=== PATIENT | female | born 1975 | race Caucasian/White ===

== ENCOUNTER 2018-05-04 17:31 | Emergency (ER) | payer OTHER ==
--- NOTE | 2018-05-04 18:07 | ED ---
Shortness of Breath - HPI Summary HPI Summary: This pt is a 43 y/o female presenting to [facility] sent by her PCP c/o SOB on exertion and right leg swelling over last month s/p right leg injury in Feb 2018. Pt reports she injured her right leg in February of 2018. Since then she notes she has had increasing swelling and pain on her right leg including her knee. Additionally notes right leg tingling and numbness when ambulating, pain across her chest and back, and elevated blood pressure. She has noticed that she feels more fatigued. Pt also has a headache today. Denies fever, chills, sore throat, ear ache, abd pain, back pain, dysuria, hematuria, bloody stools. Denies chance of . Pt takes methylphenidate for ADHD. She takes multivitamins for low ferritin. Pt notes she bruises easily. 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 Denies tobacco and alcohol use. - History of Current Complaint Chief Complaint: EDShortnessOfBreath Hx Obtained From: Patient Onset/Duration: Lasting Days, Still Present Timing: Constant Current Severity: Mild Dyspnea At: Exertion Aggrevating Factors: Nothing Alleviating Factors: Nothing Associated Signs & Symptoms: Chest Pain Unrelated to Cough, Calf Pain/Swelling, Edema - Allergy/Home Medications Allergies/Adverse Reactions: Allergies Allergy/AdvReac Type Severity Reaction Status Date / Time No Known Allergies Allergy Verified 05/04/18 17:41 Home Medications: Home Medications Methylphenidate ER TAB* [Concerta ER TAB*] 36 mg PO DAILY 05/04/18 [History Confirmed 05/04/18] Methylphenidate TAB* [Ritalin TAB*] 5 mg PO DAILY PRN 05/04/18 [History Confirmed 05/04/18] Multivit with Calcium,Iron,Min [Multiple Vitamins For Women] 1 tab PO DAILY [History Confirmed 05/04/18] PMH/Surg Hx/FS Hx/Imm Hx Endocrine/Hematology History: Reports: Hx Thyroid Disease - RIGHT THYROID NODULE CURRENTLY, Hx Anemia - LOW IRON COUNT Denies: Hx Anticoagulant Therapy, Hx Diabetes Cardiovascular History: Denies: Hx Hypertension, Hx Pacemaker/ICD Respiratory History: Reports: Hx Asthma Denies: Hx Chronic Obstructive Pulmonary Disease (COPD) GI History: Denies: Hx Jaundice, Hx Ulcer History: Denies: Hx Renal Disease Sensory History: Reports: Hx Contacts or Glasses - READING Denies: Hx Hearing Aid Opthamlomology History: Reports: Hx Contacts or Glasses - READING Neurological History: Reports: Hx Seizures - ?POSSIBLE EPILEPSY A YOUNG CHILD - NOTHING SINCE AGE 4 Denies: Hx Dementia Psychiatric History: Denies: Hx Panic Disorder, Hx Substance Abuse - Cancer History Cancer Type, Location and Year: EARLY STAGE CA OF THYROID - Surgical History Surgery Procedure, Year, and Place: 1996 18 YEARS [id number]. 2013 STAPEDECTOMY, [facility] TO . 2016 PARTIAL THYROIDECTOMY Hx Anesthesia Reactions: Yes - INFECTION FROM ENDOTRACHEAL TUBE AFTER STAPEDECTOMY(IRRITATION) Infectious Disease History: No Infectious Disease History: Denies: Hx Clostridium Difficile, Hx Hepatitis, Hx Human Immunodeficiency Virus (HIV), Hx of Known/Suspected MRSA, Hx Shingles, Hx Tuberculosis, Traveled Outside the [place] in Last 30 Days - Family History Known Family History: Positive: Diabetes Family History: Cancer. Migraine - Social History Alcohol Use: None Substance Use Type: Reports: None Smoking Status (MU): Never Smoked Tobacco Review of Systems Positive: Fatigue. Negative: Fever, Chills Negative: Sore Throat, Ear Ache Cardiovascular: Other - POS: elevated blood pressure Positive: Chest Pain Positive: Shortness Of Breath Negative: Abdominal Pain, Other - NEG: bloody stools Negative: dysuria, hematuria Musculoskeletal: Other - POS: back pain Positive: Edema - in right leg Positive: Headache, Paresthesia, Numbness All Other Systems Reviewed And Are Negative: No Physical Exam - Summary Physical Exam Summary: Appearance: Alert, conversive, nontoxic appearing Skin: Warm, dry, no mottling, no rashes, no contusions HEENT: EOMI, PERRL, moist mucous membranes Neck: No masses on the neck, supple Respiratory: Clear to auscultation, breath sounds present, no rales, no rhonchi , no wheezes Cardiovascular: RRR, pulses are symmetrical in both lower and upper extremities Abdomen: Soft, non-tender Bowel Sounds: Present Musculoskeletal: No CVA tenderness, no obvious deformity, moving all extremities in a grossly normal manner Neurological: A&Ox3, CN II-XII Intact, moving all extremities symmetrically Psychiatric: Normal affect and mood Triage Information Reviewed: Yes Vital Signs On Initial Exam: Initial Vitals Temp Pulse Resp BP Pulse Ox 97.3 F 102 22 151/98 99 05/04/18 17:38 05/04/18 17:38 05/04/18 17:38 05/04/18 17:38 05/04/18 17:38 Vital Signs Reviewed: Yes Diagnostics - Vital Signs Vital Signs Temp Pulse Resp BP Pulse Ox 05/04/18 17:38 97.3 F 102 22 151/98 99 - Laboratory Lab Statement: Any lab studies that have been ordered have been reviewed, and results considered in the medical decision making process. - Radiology Chest XR Radiology Interpretation Completed By: ED Physician Summary of Radiographic Findings: Negative chest XR. Pending official radiology report. - Ultrasound No standard instances Ultrasound Interpretation Completed By: Radiologist Summary of Ultrasound Findings: Right lower extremity US IMPRESSION: Dr. Monterroso has reviewed this report. - EKG 18:10 Cardiac Rate: NL - at 94 bpm EKG Rhythm: Sinus Rhythm Summary of EKG Findings: normal QRS, normal QTc, normal axis, normal ST/T wave Course/Dx - Course Assessment/Plan: Pt is a 43 y/o female who presents to the ED sent by her PCP c/ o SOB on exertion and right leg swelling over the last month s/p right leg injury in Feb 2018. Since then she has had increasing swelling and pain on her right leg including her knee. Additionally notes right leg tingling and numbness when ambulating, pain across her chest and back, and elevated blood pressure. Today also with a headache. She declines any pain medications for her headache. Lab work was ordered. Ultrasound was ordered. Pt will be signed out to Dr. Orlando at shift change pending ultrasound and labs. - Diagnoses Provider Diagnoses: Right leg pain, SOB (shortness of breath) Discharge - Sign-Out/Discharge Documenting (check all that apply): Sign-Out Patient Signing out patient TO: Mukund Orlando - pending US and labs - Discharge Plan Condition: Stable Referrals: Jennifer Reyes MD [Primary Care Provider] - - Attestation Statements Document Initiated by Scribe: Yes Documenting Scribe: Alice Mcintosh Provider For Whom Scribe is Documenting (Include Credential): Roseline Monterroso MD Scribe Attestation: Alice Caban, scribed for Roseline Monterroso MD on 05/04/18 at 1834. Status of Scribe Document: Ready
[2018-05-04 19:13] LABS: ABS Basophils 0.1 10^3/ul (0-0.2); ABS Eosinophils 0.1 10^3/ul (0-0.6); ABS Lymphocytes 4.1 10^3/ul (1.0-4.8); ABS Monocytes 0.8 10^3/ul (0-0.8); ABS Neutrophils 9.8 10^3/ul (1.5-7.7); ABS Nucleated RBC 0 10^3/ul; Hematocrit 41 % (35-47); Hemoglobin 13.4 g/dl (12.0-16.0); Lymphocyte % 27.5 %; Mean Corpuscular HGB Conc 33 g/dl (31-36); Mean Corpuscular Hemoglobin 30 pg (27-31); Mean Corpuscular Volume 90 fL (80-97); Mean Platelet Volume 7.5 fL (7.4-10.4); Nucleated Red Blood Cells % 0.1; Platelet Count 319 10^3/ul (150-450); Red Blood Count 4.53 10^6/ul (4.00-5.40); Red Cell Distribution Width 14 % (10.5-15)
--- NOTE | 2018-05-04 19:22 | ED ---
Progress - Progress Note Progress Note: 1899 - The pt is being received from Dr. Monterroso to Dr. Orlando, and the pt is currently stable. - Results/Orders Results/Orders: US Right Duplex LE Veins, limited IMPRESSION: 1. No right lower extremity DVT. 2. Popliteal cyst. ED physician has reviewed this report. - EKG/XRAY/CT XRAY: chest Xray Comments: Limited by habitus, but otherwise negative. Pending official rad report. - Additional EKG/XRAY/Consults XRAY #2: chest/thorax CTA Comments: No pulmonary emboli. No additional findings to correlate with patent s sx. Re-Evaluation - Re-Evaluation 1 Re-Evaluation Time: 19:54 Change: Unchanged Comment: Pt is stable, tachycardic at 100 bpm. Course/Dx - Course Course Of Treatment: Nurse's notes reviewed. I assumed care of this patient pending testing for her dyspnea. Patient has no real cough and has baseline O2 sats on room air of 99-100%. Ultrasound of the legs was negative for DVT. Laboratories were negative aside from elevated d-dimer which was modestly elevated. A CTA of the chest was performed which showed no PE, pneumonia or CHF. It is noted that the patient has normal morbidly obese which may be contributing to her dyspnea at times. She will follow-up with her primary care doctor. Thyroid studies were added to laboratories and are negative. - Diagnoses Provider Diagnoses: Dyspnea, Morbid obesity with BMI of 45.0-49.9, adult Discharge - Sign-Out/Discharge Documenting (check all that apply): Patient Departure, Receiving Sign-Out Receiving patient FROM: Roseline Monterroso - Discharge Plan Condition: Stable Disposition: HOME Patient Education Materials: Dyspnea (ED) Referrals: Jennifer Reyes MD [Primary Care Provider] - Additional Instructions: Call your doctor first thing in the morning to schedule prompt follow-up. Thyroid testing is still pending. Return with difficulty breathing, high fever , worse, new symptoms or other concerns as discussed. - Billing Disposition and Condition Condition: STABLE Disposition: Home - Attestation Statements Document Initiated by Scribe: Yes Documenting Scribe: Zaida Belcher Provider For Whom Scribe is Documenting (Include Credential): Mukund Orlando MD. Scribe Attestation: I, Zaida Belcher, scribed for Mukund Orlando MD. on 05/04/18 at 2249. Scribe Documentation Reviewed: Yes Provider Attestation: The documentation as recorded by the scribe, Zaida Belcher accurately reflects the service I personally performed and the decisions made by me, Mukund Orlando MD. Status of Scribe Document: Viewed
[2018-05-04 19:27] LABS: Albumin/Globulin Ratio 1.2 (1-3); BUN/Creatinine Ratio 18.9 (8-20); Calcium 9.6 mg/dL (8.6-10.3); EGFR African American 102.7 (>60); EGFR Non-African American 84.9 (>60); Globulin 3.3 g/dL (2-4); Potassium 3.9 mmol/L (3.5-5.0); Total Bilirubin 0.3 mg/dL (0.2-1.0); Total Protein 7.3 g/dL (6.4-8.9)
[2018-05-04] MEDS ORDERED: Iohexol 350* (CONTRAST) 500 ML MDV IV ONE (19:53)
[2018-05-04 21:58] VITALS: BP 123/96
[2018-05-04 22:18] LABS: TSH (Thyroid Stimulating Horm) 3.93 mcIU/mL (0.34-5.60)
[2018-05-04 22:20] LABS: Free T4 0.77 ng/dL (0.61-1.12)
== END 2018-05-04 21:58 | disposition home or self-care (01) ==
LOC: ED 17:31
DX: M79.604 Pain in right leg (principal); M71.20 Synovial cyst of popliteal space [Baker], unspecified knee; R06.00 Dyspnea, unspecified; E66.01 Morbid (severe) obesity due to excess calories; Z68.42 Body mass index [BMI] 45.0-49.9, adult; R53.83 Other fatigue; R06.02 Shortness of breath
CPT/HCPCS: 36415; 71045; 71275; 80053; 84439; 84443; 84484; 85025; 85379; 93005; 99283; Q9967

== ENCOUNTER → 2018-06-28 05:32 | Day surgery (SDC) | payer OTHER ==
--- NOTE | 2018-06-20 10:02 | HP ---
HISTORY AND PHYSICAL: DATE OF SURGERY: 06/28/18 DATE OF OFFICE VISIT: 06/17/18 SURGEON: Whit Rivers MD.* (DICTATED BY CHRISTOPHER PERAZA) PROCEDURE: Left knee arthroscopy with partial meniscectomy, possible chondroplasty, possible synovectomy. CHIEF COMPLAINT: Left knee pain. HISTORY OF PRESENT ILLNESS: Ms. Gutierrez is a 43-year-old female with complaints of left knee pain. An MRI confirms a meniscus tear. She has elected to proceed with surgery. PAST MEDICAL HISTORY: 1. ADHD. 2. History of thyroid cancer. PAST SURGICAL HISTORY: 1. Partial thyroidectomy. 2. Stapedectomy. CURRENT MEDICATIONS: 1. Methylphenidate ER 36 mg a day. 2. Methylphenidate 5 mg a day as needed. ALLERGIES: CHLORAPREP, GOLD, THIMEROSAL. FAMILY HISTORY: Denies. SOCIAL HISTORY: She is a 43-year-old female. She lives with her partner. She does not smoke, use drugs or alcohol. REVIEW OF SYSTEMS: A complete 14-point review of systems was reviewed with the patient, it is positive for history of thyroid cancer and a partial thyroidectomy. She denies history of DVT, PE, hepatitis, HIV, or anesthesia problems. PHYSICAL EXAMINATION GENERAL: She is well-developed, well-nourished, in no acute distress. VITAL SIGNS: She stands 6 feet 7 inches tall, weighs 311 pounds. Her blood pressure is 124/84, and heart rate is 86. HEENT: Normocephalic, atraumatic. NECK: Supple. No palpable lymph nodes. PULMONARY: The lungs are clear to auscultation bilaterally. CARDIO: Regular rate and rhythm. Strong S1, S2. ABDOMEN: Soft, nontender, nondistended. NEUROLOGICAL: She is alert and oriented x3. MUSCULOSKELETAL: Left lower extremity: The skin is intact. There are no open wounds or abrasions. There is a moderate effusion. She has some tenderness over the medial and lateral joint line. Positive Nicholas's, positive Apley's. The calves are soft and nontender. She has a 2+ dorsalis pedis pulses. She is able to dorsiflex and plantarflex. ASSESSMENT AND PLAN: Ms. Gutierrez is a 43-year-old female with continued complaints of left knee pain. She has elected to proceed with left knee arthroscopy with partial meniscectomy, possible chondroplasty, possible synovectomy. The surgery is scheduled for 06/28/[address] Rivers discussed the risks and benefits of the surgery at today's visit and all of her questions were answered. She will follow up with Dr. Rivers in 2 weeks after the surgery. CHRISTOPHER PERAZA [id number]/[facility] #: [id number] SAVANNA
[~2018-06-28 05:32] MED LIST: Acetaminophen TAB* 325 MG PO PRN; Buffered Lidocaine 1% SYRIN* 1 ML/SYRINGE INTRADERM ONE; Bupivacaine 0.5%* 50 ML VIAL ONE; Dexamethasone IV* 4 MG/ML 1 ML (4 MG) ONE; DiMENhydriNATE IV* 50 MG/ML VIAL IV PUSH PRN; EPINEPHRINE 1 MG/ML 1 ML VIAL ONE; Ketorolac INJ* 30 MG/ML 1 ML VIAL ONE; Lactated Ringers 1000 ML Bag* 1,000 ML IV SCH; Lidocaine 2% PF * 5 ML VIAL ONE; Metoclopramide IV* 5 MG/ML 2 ML VIAL ONE; Midazolam* 1 MG/ML 2 ML VIAL (2 MG) ONE; Naloxone* 0.4 MG/ML 1 ML VIAL IV PRN; Ondansetron INJ* 2 MG/ML VIAL ONE; Phenylephrine INJ* 10 MG/ML 1 ML VIAL (10 MG) ONE; Propofol* 10 MG/ML 20 ML BTL ONE; Succinylcholine* 20 MG/ML 10 ML VIAL ONE; ceFAZolin 1 GM in Dextrose (*) 1 GM/50 ML BAG IVPB ONE; ceFAZolin 2 GM in NS PREMIX(*) 2 GM/100 ML BAG IVPB ONE; fentaNYL* 50 MCG/ML 2 ML VIAL (100 MCG VIAL) IV PRN; fentaNYL* 50 MCG/ML 2 ML VIAL (100 MCG VIAL) ONE; methylPREDNISolone ACETATE 80* 80 MG/ML 1 ML VIAL ONE; oxyCODONE TAB* 5 MG TAB ONE; oxyCODONE TAB* 5 MG TAB PO PRN
[2018-06-28 10:17] VITALS: BP 124/89
--- NOTE | 2018-06-28 21:23 | OP ---
DATE OF OPERATION: 06/28/18 - [facility] DATE OF : 71 ATTENDING SURGEON: Whit Rivers MD HONING MACHINE OPERATOR TOOL: CHRISTOPHER Chawla. Mr. Barakat did help throughout the procedure with preparation of the leg, wound retraction, manipulation of the knee, and wound closure. ANESTHESIOLOGIST: Dr. Lin. ANESTHESIA: General. PRE-OP DIAGNOSIS: Left knee medial meniscal tear, moderate degenerative osteoarthritis. POST-OP DIAGNOSIS: Left knee medial meniscal tear, anterior synovitis, moderate to severe degenerative osteoarthritis in all 3 compartments. OPERATIVE PROCEDURE: Left knee arthroscopy with partial medial meniscectomy, anterior synovectomy, mediolateral and patellofemoral chondroplasty. SPECIMENS: None. ESTIMATED BLOOD LOSS: Less than 25 cc. COMPLICATIONS: None. BRIEF HISTORY/INDICATIONS: Ms. Gutierrez is a 43-year-old female with a history of left knee pain. She had mechanical symptoms. Plain films did show some arthritic changes and the MRI confirmed a medial meniscal tear. She failed conservative treatment with the antiinflammatories, pain medication, physical therapy, and intraarticular injection. Due to continued pain and decreased quality of life , she elected to undergo left knee arthroscopy with partial meniscectomy, possible chondroplasty, possible synovectomy, possible plica excision. Informed consent was obtained from the patient. She understood the risks of surgery included, but were not limited to, bleeding, infection, damage to nearby structure, continued pain, need for further surgery, re-tear of the meniscus, progression of arthritis, stroke, heart attack, blood clot, , and anesthesia complications. She elected to proceed. INTRAOPERATIVE FINDINGS: Intraoperatively, the patient was noted to have a linear tear along the posterior one-third of the medial meniscus in the right red zone. She had a significant amount of anterior synovitis. She had grade 3 and 4 Outerbridge cartilage changes in all 3 compartments of the knee with exposed subchondral bone along the weightbearing portion of the medial and lateral femoral condyles as well as exposed subchondral bone along the femoral groove and trochlear groove of the femur. DESCRIPTION OF PROCEDURE: Ms. Gutierrez was identified in the preanesthesia unit. Her left lower extremity was marked as the correct operative site. Informed consent was signed and placed in the chart. The patient was taken to the operating room and placed under anesthesia without complication. Left lower extremity was prepped and draped in the usual sterile fashion. Preop time-out was made to once again identify the patient, side, and site. Appropriate perioperative antibiotics were given within 1 hour of incision. A standard anterolateral portal incision was made with a 10 blade and carried down to the capsule. Trocar was introduced. Light and water sources were turned on. There was immediate visualization of the suprapatellar pouch. A tour of the knee joint was performed. Suprapatellar pouch had some synovitis, but no other abnormality. Patellofemoral compartment showed grade 3 and 4 Outerbridge cartilage changes with exposed subchondral bone. This was worst in the trochlear groove of the femur. There were some cartilage flaps. Medial gutters showed no loose body or significant plica. There was a significant amount of anterior synovitis. This was inflamed and did impinge with patellofemoral range of motion. Medial compartment showed a posteromedial meniscal tear with some displacement anteriorly into the joints. Medial femoral condyle and medial tibial plateau had some exposed subchondral bone with grade 3 and 4 Outerbridge cartilage changes with some frayed cartilage. The ACL and PCL did appear to be intact. The knee was placed in the figure-of- four position. There was no obvious lateral meniscal tear. There was cartilage flap seen and exposed subchondral bone along the lateral femoral condyle and tibial plateau. There were grade 3 and 4 Outerbridge cartilage changes in the lateral compartment. Lateral gutters showed no obvious abnormality. Under direct visualization, a medial portal incision was made with a 10 blade. A probe was introduced into the joint. A second tour of the knee joint was performed and no additional findings were noted. Shaver and radiofrequency ablation wand were used to perform anterior synovectomy. This was performed until there was no longer impingement of soft tissue with range of motion. This greatly improved visualization. Radiofrequency ablation wand was then used to perform chondroplasty in all three compartments. Medial compartment cartilage fraying was carefully smoothed. Lateral femoral condyle had a large cartilage flap along the weightbearing surface. This was carefully smoothed with the radiofrequency ablation wand. Next, in the patellofemoral joint, a significant amount of frayed cartilage was smoothed with the radiofrequency ablation wand. In the medial compartment, a straight biter and shaver were used to perform partial medial meniscectomy along the posterior third of the medial meniscus in the white-red zone. This linear tear was carefully excised until a smooth border was obtained. Further probing of the medial meniscus showed no additional tears. The knee was copiously irrigated with sterile saline. All instruments were removed. Incisions were closed using 3-0 nylon suture. Intraarticular injection of 80 mg Depo-Medrol and 6 cc of 1% lidocaine was placed in the knee joint. Patient's incisions were covered with Xeroform, 4x4s, and Webril. Jostin wrap and cold pack were placed over this. Patient's anesthesia was reversed without difficulty. She was taken to the PACU in stable condition. Intended weightbearing will be weightbearing as tolerated. Intended DVT prophylaxis will be aspirin. [id number]/[facility] #: [id number] [facility]ENTERTrinidad
== END | disposition home or self-care (01) ==
LOC: OR 05:32
PROVIDERS: ATTEND Orthopaedic Surgery Adult Reconstructive Orthopaedic Surgery
DX: S83.242A Other tear of medial meniscus, current injury, left knee, initial encounter (principal); M65.862 Other synovitis and tenosynovitis, left lower leg; M17.12 Unilateral primary osteoarthritis, left knee; Z85.850 Personal history of malignant neoplasm of thyroid; F90.9 Attention-deficit hyperactivity disorder, unspecified type; R60.0 Localized edema; X58.XXXA Exposure to other specified factors, initial encounter; Y92.9 Unspecified place or not applicable
CPT/HCPCS: 81025; A9270-GY; J0330; J0690; J1040; J1100; J1885; J2250; J2405; J2704; J2765; J3010